=== PATIENT | female | born 1990 | race Caucasian/White ===

== ENCOUNTER 2018-01-06 14:40 | Emergency (ER) | payer OTHER ==
[~2018-01-06] VITALS: Ht 152.4 cm; Wt 62.6 kg
[~2018-01-06 14:40] MED LIST: HYDROCORTISONE30 G4 TP; MUCINEX1200 MG/BO PO; PRENATAL TABLET1 TA1; ZYRTEC10 MG PO
== END 2018-01-06 18:07 | disposition home or self-care (01) ==
LOC: ER 14:40
DX: O26.891 Other specified pregnancy related conditions, first trimester (principal); S50.01XA Contusion of right elbow, initial encounter; S70.01XA Contusion of right hip, initial encounter; W10.8XXA Fall (on) (from) other stairs and steps, initial encounter; Y93.89 Activity, other specified; Y92.098 Other place in other non-institutional residence as the place of occurrence of the external cause; Y99.8 Other external cause status; Z34.01 Encounter for supervision of normal first pregnancy, first trimester